=== PATIENT | female | born 2000 ===

== ENCOUNTER 2022-03-03 06:12 | Inpatient (IN) ==
[~2022-03-03 06:12] MED LIST: Buffered Lidocaine 1% SYRIN 1 ml INTRADERM ONE; DiMENhydriNATE IV 50 mg/ml 1 ml VIAL IV PUSH ONE; Lactated Ringers 1000 ml BAG 1,000 ML IV SCH; Naloxone 0.4 mg VIAL 0.4 mg/ml 1 ml VIAL IV PRN; Ondansetron 4 mg VIAL 2 MG/ML 2 ml VIAL IV PRN; fentaNYL 100 mcg/2 ml 50 MCG/ML VIAL IV PRN
[2022-03-03] MEDS ORDERED: DiMENhydriNATE IV 50 mg/ml 1 ml VIAL ONE (06:24)
[2022-03-03] MEDS ORDERED: ceFAZolin 2 GM in NS PREMIX 2 GM/100 ML BAG IVPB ONE (06:24)
[2022-03-03] MEDS ORDERED: Heparin 5000 UNITS/ML 1 mL VIAL ONE (06:24)
[2022-03-03] MEDS ORDERED: Scopolamine 1 mg/72hr PATCH ONE (06:24)
[2022-03-03] MEDS ORDERED: Bupivacaine 0.25% w/EPI 10 ML SDV ONE ×2 (06:59→08:41)
[2022-03-03] MEDS ORDERED: ceFAZolin VIAL 1 GM in NS 0.9% 50 ML 50 ML IVPB ONE (07:00)
[2022-03-03] MEDS ORDERED: Midazolam 2 mg/2 ml VIAL 1 mg/ml 2 ml VIAL (2 mg) ONE (07:01)
[2022-03-03] MEDS ORDERED: Rocuronium 50 mg VIAL 10 mg/ml 5 ml VIAL (50 mg) ONE ×2 (07:01→08:14)
[2022-03-03] MEDS ORDERED: fentaNYL 250 mcg/5 ml 50 MCG/ML 5 ml VIAL (250 MCG) ONE (07:01)
[2022-03-03] MEDS ORDERED: Buffered Lidocaine 1% SYRIN 1 ml INTRADERM ONE (07:04)
[2022-03-03] MEDS ORDERED: Lidocaine 2% PF 10 ML AMP ONE (07:08)
[2022-03-03] MEDS ORDERED: Propofol 10 MG/ML 20 ML BTL ONE (07:08)
[2022-03-03] MEDS ORDERED: Ondansetron 4 mg VIAL 2 MG/ML 2 ml VIAL ONE (09:43)
[2022-03-03] MEDS ORDERED: HYDROcodone/ACET. 7.5/325 LIQ 15 ML UDC PO PRN (10:42)
[2022-03-03] MEDS ORDERED: HYDROmorphone 1 MG/1 ML SYRINGE ONE (10:47)
[2022-03-03] MEDS: HYDROmorphone 1 MG/1 ML SYRINGE IV PRN ×5 (10:48→11:36)
[2022-03-03] MEDS ORDERED: fentaNYL 100 mcg/2 ml 50 MCG/ML VIAL ONE (11:47)
[2022-03-03] MEDS: Lactated Ringers 1000 ml BAG 1,000 ML IV SCH ×2 (13:16→20:03)
[2022-03-03] MEDS: HYDROmorphone 0.5 MG/0.5 ML SYRINGE IV SLOW PU PRN (16:31)
[2022-03-03] MEDS: Ondansetron 4 mg VIAL 2 MG/ML 2 ml VIAL IV PRN (16:32)
[2022-03-03] MEDS: Heparin 5000 UNITS/ML 1 mL VIAL SUBCUT SCH (23:04)
[2022-03-04] MEDS: Lactated Ringers 1000 ml BAG 1,000 ML IV SCH ×2 (04:01→10:10)
[2022-03-04] MEDS: Heparin 5000 UNITS/ML 1 mL VIAL SUBCUT SCH ×3 (06:19→22:16)
[2022-03-04] MEDS: Ondansetron 4 mg VIAL 2 MG/ML 2 ml VIAL IV PRN ×2 (13:22→19:41)
[2022-03-04] MEDS: D5W 1/2 NS KCl 20 meq 1000 ml 1,000 ML IV SCH ×2 (13:29→22:16)
[2022-03-04] MEDS: HYDROmorphone 0.5 MG/0.5 ML SYRINGE IV SLOW PU PRN ×2 (13:34→19:41)
[2022-03-05] MEDS: HYDROmorphone 0.5 MG/0.5 ML SYRINGE IV SLOW PU PRN (01:33)
[2022-03-05] MEDS: Ondansetron 4 mg VIAL 2 MG/ML 2 ml VIAL IV PRN ×2 (01:33→10:05)
[2022-03-05] MEDS: Heparin 5000 UNITS/ML 1 mL VIAL SUBCUT SCH ×3 (06:27→21:59)
[2022-03-05] MEDS: D5W 1/2 NS KCl 20 meq 1000 ml 1,000 ML IV SCH (06:28)
[2022-03-06] MEDS: Heparin 5000 UNITS/ML 1 mL VIAL SUBCUT SCH (06:15)
[2022-03-06 07:45] VITALS: BP 99/50
== END 2022-03-06 11:30 | disposition home or self-care (01) | DRG 621 ==
LOC: EDBD → AA 06:12 → SSU 13:11
PROVIDERS: ADMIT Surgery; ATTEND Surgery